=== PATIENT | female | born 1995 | race Caucasian/White ===

== ENCOUNTER 2018-10-09 22:39 | Observation (INO) | payer BC ==
[2018-10-09] MEDS ORDERED: Nitroglycerin 0.4 MG TAB 1 EACH ONE (23:21)
[2018-10-10] MEDS ORDERED: Ondansetron PF 4 MG/2 ML Vial IVP PRN (03:10)
[2018-10-10] MEDS ORDERED: Acetaminophen 650 MG Suppository PR PRN (03:10)
[2018-10-10] MEDS ORDERED: Ondansetron ODT 4 MG TAB PO PRN (03:10)
[2018-10-10] MEDS ORDERED: Acetaminophen 325 MG TAB PO PRN (03:10)
[2018-10-10 03:31] VITALS: BMI 27.0
[2018-10-10 05:05] LABS: BHCG - Serum Negative (NEGATIVE); Pregs Control Background? CLEAR/WHITE (CLR/WHITE); Pregs Control Bar Appear? YES (CONTROL BAR)
[2018-10-10 05:07] LABS: #Lymphocytes 1.8 thou/uL (1.20-3.40); #Monocytes 0.6 thou/uL (0.11-0.59); #Neutrophils 6.2 thou/uL (1.40-6.50); %Basophils 0.5 % (0.0-1.0); %Eosinophils 0.3 % (0.0-10.0); %Lymphocytes 20.5 % (21.0-51.0); %Monocytes 7.1 % (0.0-10.0); %Neutrophils 71.6 % (42.0-75.0); Hemoglobin 12.9 g/dL (12.0-16.0); Mean Corpuscular HGB CONC 34.1 g/dL (32.0-36.0); Mean Corpuscular Hemoglobin 30.1 pg (27.0-31.0); Mean Corpuscular Volume 88.3 fL (78.0-98.0); Mean Platelet Volume 7.2 fL (7.4-10.4); Platelet Count 312 thou/uL (130-400); Red Blood Cell (RBC) Count 4.27 mill/uL (4.20-5.40); White Blood Cell (WBC) Count 8.7 thou/uL (4.8-10.8)
[2018-10-10 05:22] LABS: Anion Gap 11 mmol/L (10-20); BUN (Urea Nitrogen) 12 mg/dL (7.0-18.7); Calc. Creatinine Clearance 134 mL/min (70-130); Calcium 9.2 mg/dL (7.8-10.44); Carbon Dioxide 25 mmol/L (22-29); Chloride 106 mmol/L (98-107); Estimated GFR-MDRD Greater than 90; Glucose 109 mg/dL (70-105); Potassium 3.8 mmol/L (3.5-5.1); Sodium 138 mmol/L (136-145)
--- NOTE | 2018-10-10 05:44 | HP ---
CHIEF COMPLAINT: Choking episode while eating on sushi with subsequent severe pain. HISTORY OF PRESENT ILLNESS: Ms. Cisneros is a 23-year-old woman, who presents to the emergency department with severe esophageal discomfort, that occurred after choking on a piece of sushi. The patient states she feels she did not chew it thoroughly and they got stuck in her throat. She began to burp excessively and dry heaves , but unable to bring the contents up. Eventually, she did bring up a couple of pieces of rice, but felt the pain began to get worse and radiates down her chest into the epigastric region. She reports at times feeling as if it was starting to come back up her throat and then getting stuck again. The patient was seen at the Urgent Care and given 1 mg of glucagon. Per ED physician, GI was consulted at before she was transferred here. Per ED physician, Dr. Edmondson is aware for the patient and has agreed to see her in the morning. Possible EGD. The patient did have symptomatic improvement after given nitro. She reports having no severe pain at this present time. Denies coughing up any blood. Denies any trouble with her breathing. Denies having any difficulties with swallowing at baseline. REVIEW OF SYSTEMS: All other review of systems are negative. PAST MEDICAL HISTORY: 1. Fever blisters. 2. Attention deficit disorder. PAST SURGICAL HISTORY: 1. Deviated septum. 2. Tonsillectomy. 3. Adenoidectomy. SOCIAL HISTORY: The patient reports drinking alcohol socially, weekly but not daily. States she did smoke marijuana a few hours before eating. Denies any tobacco use. No other illicit drug use. ALLERGIES: 1. CODEINE. 2. PENICILLIN. CURRENT MEDICATIONS: Aubra. PHYSICAL EXAMINATION: GENERAL: The patient was found resting comfortably in bed. VITAL SIGNS: Temperature 98.8, pulse 99, respirations 16, blood pressure 127/78 , and O2 sat 98% on room air. HEENT: Normocephalic and atraumatic. Pupils equal, round, and reactive to light. Sclerae icterus. Oropharynx is clear. NECK: Supple. LUNGS: Clear to auscultation bilaterally. CARDIAC: Regular rate and rhythm. ABDOMEN: Soft, nontender, and nondistended. Normoactive bowel sounds present. EXTREMITIES: No lower leg swelling or edema. NEUROLOGIC: Alert and oriented x3. SKIN: Without rash or jaundice. INVESTIGATIONS: None. IMPRESSION AND PLAN: Ms. Cisneros is a very pleasant 23-year-old woman, who presents with severe odynophagia after choking on a piece of sushi, which she feels she did not chew thoroughly. The patient reports having episodes of dry heaving and feeling as if she was regurgitating, but unable to bring up the contents. The pain radiated down to the epigastric region and has not settled. She reports occasional esophageal irritation and feeling as if something wants to come up her throat. She has intermittent belching, though it has settled from how frequent it was when she first presented. No hematemesis. No hemoptysis. The patient is comfortable at present. Dr. Edmondson is aware of the patient and plans to assess her later this morning, and she may potentially have an EGD. We will obtain a CBC and CMP. We will also obtain a chest x-ray. We will continue to monitor. DISPOSITION: As per GI assessment. CODE STATUS: Full. The patient's case was discussed with Dr. Vega, who agrees with the plan of care as described above. Job ID: [id number] MTDD
[2018-10-10] MEDS ORDERED: Famotidine/PF 20 mg/2ml Vial SLOW IVP SCH (09:00)
[2018-10-10] MEDS ORDERED: Sodium Chloride 0.9% 1,000 ML IV SCH (10:00)
--- NOTE | 2018-10-10 10:36 | RAD ---
CHEST 2 VIEWS: HISTORY: Chest pain, choked on food. FINDINGS: Heart size is within normal limits. The lungs are clear. No confluent pneumonia, overt edema, or pl eural effusion. IMPRESSION: No acute intrathoracic disease. POS: TPC
[2018-10-10 12:03] VITALS: BP 106/70; TEMP 98.6
[2018-10-10] MEDS ORDERED: PROPOFOL 200 MG/20 ML VIAL ONE (13:47)
--- NOTE | 2018-10-10 15:01 | DIS ---
DATE OF ADMISSION: 10/10/2018 DATE OF DISCHARGE: 10/10/2018 PRIMARY CARE PHYSICIAN: [facility] Call admission. DISCHARGE DISPOSITION: Home. PRIMARY DISCHARGE DIAGNOSES: 1. Acute esophageal obstruction due to food infection, resolved. 2. Esophageal pain due to problem #1. SECONDARY DISCHARGE DIAGNOSIS: Attention deficit hyperactivity disorder. PRIMARY PROCEDURE/OPERATION: None. RADIOLOGICAL INVESTIGATION: Chest x-ray normal. SIGNIFICANT LABORATORY DATA: Hemoglobin 12.9, creatinine 0.76. test, negative. DISCHARGE MEDICATIONS: 1. Protonix 40 mg p.o. daily. 2. Valtrex 500 mg p.o. daily. The patient is taking for fever blister. 3. The patient is taking oral contraceptive pills. CONTRAINDICATION: None. CODE STATUS: Full code. INPATIENT LIVESTOCK YARD ATTENDANT: Dr. Edmondson. TEST RESULTS PENDING ON DISCHARGE: None. ALLERGIES: CODEINE AND PENICILLIN. DISCHARGE PLAN: Posthospital, the patient will follow up with primary care physician if needed. HOSPITAL COURSE: A 23-year-old female with no medical history, who was eating sushi and subsequently she had choking episode and the patient was trying to swallow food bolus, but it was causing her esophageal pain. Somehow she was able to vomit out particles of seafood, but subsequently the patient was experiencing esophageal pain and that is why she came to emergency room. In the emergency room, she was completely stable. When I saw this morning, the patient was able to swallow her saliva without any problem. She does not have any significant esophageal pain. Her chest x-ray is normal. Her vitals were stable. GI as well consulted and GI will decide whether the patient needs any more investigation or not, but the patient is overall stable, doing very well. We advised this patient that up after discharge she needs to take a mechanical soft diet until her pain completely subsides, we also prescribed Protonix. I have seen and examined the patient at bedside today. REVIEW OF SYSTEMS: Reviewed and negative. Her examination is completely normal. Job ID: [id number]
[2018-10-10] MEDS ORDERED: Promethazine HCl 25 MG/ML VIAL SLOW IVP PRN (20:51)
[2018-10-10] MEDS ORDERED: Promethazine HCl 25 MG/ML VIAL IM PRN (20:51)
[2018-10-10] MEDS ORDERED: Ondansetron HCl/PF 4 MG/2 ML Vial IVP PRN (20:51)
[2018-10-10] MEDS ORDERED: Ondansetron PF 4 MG/2 ML Vial ONE (21:26)
--- NOTE | 2018-10-10 23:04 | CON ---
DATE OF CONSULTATION: 10/10/2018 HISTORY OF PRESENT ILLNESS: Ms. Cisneros is a 23-year-old female, who came to the emergency room last night, transferred from another emergency room where after she had eaten she got the sushi stuck. Apparently, she had severe pain. She was unable to handle secretions. They gave her glucagon at the outside facility and she felt better for a while, but did not and was sent here. Here in our emergency room, she was given nitroglycerin. After that, she was able to tolerate drinking Cokes. She did have pain in her chest, however. I was contacted and it did not seem like she had a bolus obstruction. I will also see the patient in the outpatient setting next week for nonemergent workup. However, the patient is going out of town tomorrow and she was worried about going home, still having her pain. She was admitted to the hospital service. I have been asked to see her. PAST MEDICAL HISTORY: Mild reflux at times. Recent problems with fever blisters, attention deficit disorder. PAST SURGICAL HISTORY: Deviated septum, tonsillectomy, and adenoidectomy. ALLERGIES: NONE. MEDICATIONS: At home, control, antiviral. SOCIAL HISTORY: Occasionally smokes marijuana. Does not smoke cigarettes. She drinks alcohol socially. ALLERGIES: CODEINE, PENICILLIN. PHYSICAL EXAMINATION: GENERAL: The patient is resting comfortably in bed. She is sitting with no distress. HEENT: Oropharynx, no lesions. NECK: Supple. LUNGS: Clear. HEART: Regular without clicks or murmurs. ABDOMEN: Soft and nontender. VITAL SIGNS: Temperature 98, pulse 68, blood pressure 106/70. LABORATORY DATA: White count 8.7, hemoglobin 12.3, platelet count 312. Basic metabolic panel normal. ASSESSMENT: 1. Transient bowel obstruction esophagus, resolved. 2. Ongoing mild chest pain. This is either viral esophagitis or esophagitis from the transient bowel obstruction. PLAN: EGD as soon as the hospital can accommodate that. Job ID: [id number]
--- NOTE | 2018-10-11 03:00 | OP ---
DATE OF PROCEDURE: 10/10/2018 PREPROCEDURE DIAGNOSES: 1. Recent episode of bolus obstruction last night with eating sushi. No prior episodes. No prior history of dysphagia. 2. Now with some odynophagia and chest discomfort. POSTPROCEDURE DIAGNOSES: 1. Normal esophagogastroduodenoscopy. No evidence of eosinophilic esophagitis, esophageal rings or webs, or distal esophageal strictures. No reflux changes. 2. Normal stomach and duodenum. RECOMMENDATIONS: Prilosec 20 mg p.o. daily for 2 weeks and then stop. ANESTHESIA: TIVA. DESCRIPTION OF PROCEDURE: After the patient was informed of the risks, benefits, and possible complications of endoscopy including perforation, reaction to medication, and aspiration, informed consent was obtained. The patient was brought to endoscopy suite, where she was sedated in a gradual fashion. Once she was comfortable, a bite block was placed inside the orifice. The endoscope was advanced through the esophagus, stomach, and second and third portions of the duodenum and slowly removed. The esophagus, stomach, and duodenum were all within normal limits. The esophagus was closely evaluated for any signs of furrowing or circumferential rings to suggest eosinophilic esophagitis. This was in fact negative. The throat was evaluated closely as was the upper esophageal sphincter and cricopharyngeal bar. These were all in normal areas. There was no evidence of Schatzki's ring or hiatal hernia. Retroflexed views in the stomach were normal. Four views of the stomach were normal and the duodenum was normal. In the 3rd portion, no evidence of celiac. The scope was removed. The patient tolerated the procedure well. There were no complications. Job ID: [id number]
== END 2018-10-10 22:30 | disposition home or self-care (01) ==
LOC: ERS 22:39 → 2SW 10-10 02:47
PROVIDERS: ADMIT Hospitalist; ATTEND Hospitalist
PROC: 0DJ08ZZ Inspection of Upper Intestinal Tract, Via Natural or Artificial Opening Endoscopic (ICD-10-PCS; principal; 2018-10-10)
DX: T18.128A Food in esophagus causing other injury, initial encounter (principal); F90.9 Attention-deficit hyperactivity disorder, unspecified type; Z79.899 Other long term (current) drug therapy; Z88.0 Allergy status to penicillin; Z88.5 Allergy status to narcotic agent
CPT/HCPCS: 36415; 71046; 80048; 84703; 85025; 96361; 96374; 99284; G0378; J2405; J2704; S0028